=== PATIENT | female | born 1945 | race Caucasian/White ===

== ENCOUNTER 2020-04-28 18:42 | Emergency (ER) | payer MEDICARE, MEDICAID ==
--- NOTE | 2020-04-28 20:20 | RAD ---
LEFT HIP TWO VIEWS: History: Injury. Fall with pain in hip. FINDINGS: There is cortical disruption on the inferior aspect of the femoral neck in the subcapital region cons istent with fracture. No displacement. Visualized pelvis appears intact. IMPRESSION: Evidence of subcapital fracture inferior aspect of the femoral neck. POS: AGW
[2020-04-28 21:08] LABS: #Eosinphils 0.2 thou/uL (0.0-0.7); #Lymphocytes 1.5 thou/uL (1.20-3.40); #Monocytes 0.6 thou/uL (0.11-0.59); #Neutrophils 6.7 thou/uL (1.40-6.50); %Basophils 0.5 % (0.0-1.0); %Eosinophils 1.8 % (0.0-10.0); %Lymphocytes 16.5 % (21.0-51.0); %Monocytes 6.4 % (0.0-10.0); %Neutrophils 74.8 % (42.0-75.0); Mean Corpuscular HGB CONC 32.3 g/dL (32.0-36.0); Mean Corpuscular Hemoglobin 28.5 pg (27.0-31.0); Mean Platelet Volume 7.5 fL (7.4-10.4); Platelet Count 178 thou/uL (130-400); RBC Distribution Width 11.8 % (11.5-14.5); Red Blood Cell (RBC) Count 4.56 mill/uL (4.20-5.40)
[2020-04-28 21:36] LABS: ALT (SGPT) 10 U/L (8-55); AST (SGOT) 13 U/L (5-34); Albumin 4.2 g/dL (3.4-4.8); Alkaline Phosphatase 76 U/L (40-110); Anion Gap 14 mmol/L (10-20); BUN (Urea Nitrogen) 20 mg/dL (9.8-20.1); Bilirubin, Total 0.8 mg/dL (0.2-1.2); Calc. Creatinine Clearance 0 mL/min (70-130); Calcium 10.2 mg/dL (7.8-10.44); Carbon Dioxide 25 mmol/L (23-31); Chloride 104 mmol/L (98-107); Estimated GFR-MDRD 69; Glucose 138 mg/dL (83-110); Protein, Total 7.2 g/dL (6.0-8.3); Sodium 139 mmol/L (136-145)
--- NOTE | 2020-04-28 21:43 | RAD ---
AP CHEST: History: Pre op evaluation. FINDINGS: Lung eason are clear. Vasculature normal. Heart and mediastinum unremarkable. Small calcified granuloma in the peripheral right lung. IMPRESSION: No acute findings. POS: AGW
== END 2020-04-28 21:29 | disposition short-term general hospital (02) ==
LOC: NAV ERS 18:42
DX: S72.012A Unspecified intracapsular fracture of left femur, initial encounter for closed fracture (principal); I10 Essential (primary) hypertension; G30.9 Alzheimer's disease, unspecified; F02.80 Dementia in other diseases classified elsewhere, unspecified severity, without behavioral disturbance, psychotic disturbance, mood disturbance, and anxiety; I25.9 Chronic ischemic heart disease, unspecified; E55.9 Vitamin D deficiency, unspecified; F41.9 Anxiety disorder, unspecified; F32.9 Major depressive disorder, single episode, unspecified; Z79.899 Other long term (current) drug therapy; Z86.73 Personal history of transient ischemic attack (TIA), and cerebral infarction without residual deficits; Z79.82 Long term (current) use of aspirin; Z79.84 Long term (current) use of oral hypoglycemic drugs; W19.XXXA Unspecified fall, initial encounter
CPT/HCPCS: 71045; 80053; 85025; 93005

== ENCOUNTER 2020-05-27 18:50 | Inpatient (IN) | payer MEDICARE, MEDICAID ==
[2020-05-27 19:53] LABS: #Lymphocytes 0.8 thou/uL (1.20-3.40); #Monocytes 0.8 thou/uL (0.11-0.59); #Neutrophils 12.9 thou/uL (1.40-6.50); %Basophils 0.3 % (0.0-1.0); %Eosinophils 0.1 % (0.0-10.0); %Lymphocytes 5.2 % (21.0-51.0); %Monocytes 5.3 % (0.0-10.0); Hemoglobin 12.9 g/dL (12.0-16.0); Mean Corpuscular HGB CONC 32.8 g/dL (32.0-36.0); Mean Corpuscular Hemoglobin 28.7 pg (27.0-31.0); Mean Corpuscular Volume 87.4 fL (78.0-98.0); Mean Platelet Volume 7.5 fL (7.4-10.4); Platelet Count 200 thou/uL (130-400); RBC Distribution Width 12.6 % (11.5-14.5); Red Blood Cell (RBC) Count 4.49 mill/uL (4.20-5.40); White Blood Cell (WBC) Count 14.5 thou/uL (4.8-10.8)
--- NOTE | 2020-05-27 19:59 | RAD ---
Portable frontal chest radiograph: 05/27/2020 COMPARISON: 04/28/2020 HISTORY: Urosepsis, fever FINDINGS: Heart and mediastinal contours are stable. No pneumothorax or pleural fluid. No focal conso lidation or alveolar edema. IMPRESSION: No acute findings.
[2020-05-27 20:02] LABS: ALT (SGPT) 10 U/L (8-55); AST (SGOT) 9 U/L (5-34); Albumin 3.7 g/dL (3.4-4.8); Alkaline Phosphatase 92 U/L (40-110); Anion Gap 18 mmol/L (10-20); BUN (Urea Nitrogen) 39 mg/dL (9.8-20.1); Bilirubin, Total 0.7 mg/dL (0.2-1.2); CK (CPK) 16 U/L (29-168); Calc. Creatinine Clearance 0 mL/min (70-130); Calcium 10.1 mg/dL (7.8-10.44); Carbon Dioxide 20 mmol/L (23-31); Chloride 109 mmol/L (98-107); Estimated GFR-MDRD 36; Globulin 3.4 g/dL (2.4-3.5); Glucose 328 mg/dL (83-110); Protein, Total 7.1 g/dL (6.0-8.3); Sodium 143 mmol/L (136-145)
[2020-05-27] MEDS ORDERED: Cefepime 2 GM VIAL ONE (20:02)
[2020-05-27] MEDS ORDERED: Sodium Chloride 0.9% 100 ML ONE (20:02)
[2020-05-27] MEDS ORDERED: Sodium Chloride 0.9% 1,000 ML ONE (20:02)
[2020-05-27 20:11] LABS: Lipase Less than 4 U/L (8-78)
--- NOTE | 2020-05-27 20:23 | CT ---
CT of the abdomen and pelvis: 05/27/2020 COMPARISON: None HISTORY: Possible urosepsis, abdominal distention TECHNIQUE: Axial CT imaging at 5 mm intervals from the lung bases through the pubic symphysis without contrast. Coronal and sagittal reformatted imaging obtained. FINDINGS: Coronary arterial calcification noted. Calcified hilar lymph nodes are noted on the right. There is mild pleural-based density in the right lung base suggesting volume loss or scar. Evaluation of the viscera, bowel, vascular structures, and for lymphadenopathy is limited on noncontr ast enhanced imaging. Cholecystectomy clips are present. The liver, spleen, and pancreas appear grossly unremarkable. Bilateral adrenal glands are thickened w ith possible underlying low-density nodules, not well assessed on this examination secondary to motion. There is a moderate degree of hydronephrosis and hydroureter bilaterally. This is likely secondary to urinary bladder distention as there is massive dilation of the urinary bladder which measures 20.5 cm in craniocaudal dimension, 14.6 cm in AP dimension and 17.7 cm in transverse dimension. There is significant stool seen throughout the colon. No evidence for bowel obstruction. Evaluation o f the bowel is limited secondary to the distended urinary bladder and the lack of contrast media. There is scattered atherosclerotic calcification of the abdominal aorta and its branches. No acute osseous abnormality is seen. Multilevel lower lumbar spine facet hypertrophic change present . IMPRESSION: Massively distended urinary bladder with bilateral hydronephrosis and hydroureter, likely all secondary to bladder outlet obstruction. Follow-up renal ultrasound following decompression of the urinary bladder advised to document resolution of the hydronephrosis.
[2020-05-27 20:30] LABS: CKMB 2.3 ng/mL (0-6.6)
[2020-05-27 20:53] LABS: Bilirubin Negative (Negative); Blood, Urine Trace (Negative); Clarity Clear (Clear); Glucose, Urine (Dipstick) 500 mg/dL (Negative); Ketone, Urine Negative (Negative); Leukocyte Negative (Negative); Nitrite Negative (Negative); Protein, Urine (Dipstick) 30 mg/dL (Neg-Trace); Specific Gravity, Urine 1.025 (1.005-1.030); Urobilinogen 0.2 mg/dL (Less than 2); pH, Urine 5.5 (5.0-9.0)
[2020-05-27 21:00] LABS: RBC/HPF 0-3 HPF (0-3)
[2020-05-27] MEDS ORDERED: Sodium Chloride 0.9% 500 ML ONE (21:59)
[2020-05-27 22:44] LABS: Lactic Acid 3.7 mmol/L (0.5-2.2)
[2020-05-27 22:56] VITALS: BMI 21.8
[2020-05-27] MEDS ORDERED: Sodium Chloride 0.9% 1,000 ML IV SCH (23:45)
[2020-05-27] MEDS ORDERED: Dextrose 5% in Water 1,000 ML IV PRN (23:45)
[2020-05-27] MEDS ORDERED: HumaLOG 300 UNITS/3 ML VIAL SC PRN (23:45)
[2020-05-27] MEDS ORDERED: Dextrose 50% Abboject 50 ML SYRINGE SLOW IVP PRN (23:48)
[2020-05-27] MEDS ORDERED: hydrALAZINE 20 MG/ML VIAL SLOW IVP SCH (23:59)
[2020-05-28] MEDS ORDERED: hydrALAZINE 20 MG/ML VIAL SLOW IVP SCH ×3 (01:00→07:15)
[2020-05-28 05:48] LABS: Lactic Acid 2.2 mmol/L (0.5-2.2)
[2020-05-28] MEDS ORDERED: [UNRECOGNIZED DRUG - OTHER] PO SCH (09:00)
[2020-05-28] MEDS ORDERED: SENNOSIDES PO SCH (09:00)
[2020-05-28] MEDS ORDERED: Non-Formulary Item 1 EACH (Metformin Hcl [Metformin Hcl] 1,000 MG Tablet) PO SCH (09:00)
[2020-05-28] MEDS ORDERED: Non-Formulary Item 1 EACH (Amlodipine Besylate [Amlodipine Besylate] 2.5 MG Tablet) PO SCH (09:00)
[2020-05-28] MEDS ORDERED: Sodium Chloride 0.9% 1,000 ML IV SCH (09:00)
[2020-05-28] MEDS ORDERED: DOCUSATE SODIUM PO SCH (09:00)
[2020-05-28 09:19] LABS: #Basophils 0.1 thou/uL (0.0-0.2); #Eosinphils 0.3 thou/uL (0.0-0.7); #Lymphocytes 1.6 thou/uL (1.20-3.40); #Monocytes 0.6 thou/uL (0.11-0.59); #Neutrophils 6.6 thou/uL (1.40-6.50); %Basophils 0.6 % (0.0-1.0); %Lymphocytes 17.9 % (21.0-51.0); %Neutrophils 72.5 % (42.0-75.0); Hemoglobin 11.6 g/dL (12.0-16.0); Mean Corpuscular HGB CONC 32.7 g/dL (32.0-36.0); Mean Corpuscular Hemoglobin 29.1 pg (27.0-31.0); Mean Platelet Volume 7.6 fL (7.4-10.4); Platelet Count 170 thou/uL (130-400); Red Blood Cell (RBC) Count 3.98 mill/uL (4.20-5.40); White Blood Cell (WBC) Count 9.1 thou/uL (4.8-10.8)
[2020-05-28] MEDS: Amlodipine 5 MG TAB PO SCH ×2 (09:24→11:18)
[2020-05-28 09:25] LABS: Lactic Acid 2.2 mmol/L (0.5-2.2)
[2020-05-28] MEDS: Aspirin 81 mg Enteric Coated Tablet PO SCH ×2 (09:25→11:19)
[2020-05-28] MEDS: busPIRone HCl 5 MG TAB PO SCH ×4 (09:26→21:10)
[2020-05-28] MEDS: Lisinopril 20 MG TAB PO SCH ×2 (09:26→11:20)
[2020-05-28] MEDS: metFORMIN 500 MG TAB PO SCH ×3 (09:27→21:10)
[2020-05-28] MEDS: Senokot S 8.6-50 MG TAB PO SCH ×2 (09:28→11:21)
[2020-05-28 09:30] LABS: ALT (SGPT) 9 U/L (8-55); AST (SGOT) 9 U/L (5-34); Albumin 3.3 g/dL (3.4-4.8); Alkaline Phosphatase 83 U/L (40-110); Anion Gap 14 mmol/L (10-20); BUN (Urea Nitrogen) 31 mg/dL (9.8-20.1); Bilirubin, Total 0.7 mg/dL (0.2-1.2); Calc. Creatinine Clearance 53 mL/min (70-130); Calcium 9.4 mg/dL (7.8-10.44); Carbon Dioxide 22 mmol/L (23-31); Chloride 112 mmol/L (98-107); Estimated GFR-MDRD 62; Glucose 181 mg/dL (83-110); Potassium 3.3 mmol/L (3.5-5.1); Protein, Total 6.3 g/dL (6.0-8.3); Sodium 145 mmol/L (136-145)
[2020-05-28 10:16] LABS: Troponin I 0.506 ng/mL (< 0.028)
[2020-05-28] MEDS: Sodium Chloride 0.9% 1,000 ML IV SCH (11:22)
[2020-05-28] MEDS ORDERED: Amlodipine 5 MG TAB PO SCH (13:00)
[2020-05-28] MEDS: Meropenem 1 GM in Sodium Chloride 0.9% 100 ML IVPB SCH ×2 (13:59→21:11)
[2020-05-28] MEDS ORDERED: Acetaminophen 325 MG TAB PO PRN (14:21)
[2020-05-28 14:40] LABS: SARS-CoV-2 MS2 Positive; SARS-CoV-2 N Gene Negative; SARS-CoV-2 S Gene Negative; SARS-CoV-2 by NAA Not Detected (NotDetected); SARS-CoV-2 orf1ab Negative
[2020-05-28] MEDS ORDERED: Acetaminophen 325 MG TAB PO SCH (18:00)
[2020-05-28] MEDS: Donepezil HCl 10 MG TAB PO SCH (21:10)
[2020-05-28] MEDS: Mirtazapine 15 MG TAB PO SCH (21:10)
--- NOTE | 2020-05-29 02:34 | HP ---
HISTORY OF PRESENT ILLNESS: This 74-year-old female transferred here from skilled nursing for weakness and altered mental status. Of note, the patient is baseline aphasic after a CVA that she suffered in the past. Therefore, history could not be obtained from the patient. History was obtained through ED report and reviewing previous records. The patient has past medical history of dementia, cerebrovascular accident, Alzheimer's, hypertension, type 2 diabetes, vitamin D deficiency, anxiety and depression. I am unable to obtain past surgical history. The patient was brought to the ED while in the skilled nursing for weakness and altered mental status. In the ED, chest x-ray was taken, which was unremarkable. Abdominal CT showed bilateral hydronephrosis and hydroureter with significant urinary bladder distention and dilation of the urinary bladder, which measured 20.5 cm in craniocaudal dimension, 14.6 cm in AP dimension, 17.7 cm in transverse dimension. The patient was also found to be septic with a white count of 14.5 and a lactate of 3.7, carbon dioxide was low at 20, sodium and potassium of 143 and 4.0, BUN 39, creatinine 1.44, glucose of 328. The patient had troponin of 0.675, however, she is DNR. Urine positive for protein 30, glucose 500, trace blood. COVID-19 test was negative. The patient was admitted for sepsis secondary to presumed urosepsis given hydronephrosis and condition. PAST MEDICAL HISTORY: 1. Dementia. 2. CVA. 3. Alzheimer's. 4. Hypertension. 5. Type 2 diabetes. 6. Vitamin D deficiency. 7. Anxiety. 8. Depression. PAST SURGICAL HISTORY: I am unable to obtain. ALLERGIES: NO KNOWN DRUG ALLERGIES. HOME MEDICATIONS: Per documents sent; 1. Donepezil 10 at bedtime. 2. Docusate. 3. Lisinopril 20 daily. 4. Vitamin D3. 5. Metformin 1000 b.i.d. 6. BuSpar 5 mg p.o. t.i.d. 7. Aspirin 81 mg. 8. Amlodipine 2.5 mg p.o. daily. 9. Mirtazapine 15 mg p.o. at bedtime. 10. Loperamide 2 mg p.o. q.6 hours p.r.n. 11. Acetaminophen 1000 p.o. q.8. PHYSICAL EXAMINATION: VITAL SIGNS: On admission, temperature 96, pulse 88 to 93, blood pressure ranging 129/86 to 161/100, respiratory rate of 20, and O2 sats 94% on room air. GENERAL: Frail, well-appearing 74-year-old female, in no apparent distress. Aphasic. HEENT: Normocephalic, atraumatic. No thyromegaly. RESPIRATORY: Clear to auscultation bilaterally. No wheezes or rhonchi. CARDIOVASCULAR: Regular rate and rhythm. No murmurs, gallops, or rubs. ABDOMEN: Soft, nontender to palpation. Bowel sounds present in all four quadrants. EXTREMITIES: No edema. No rashes seen. NEUROLOGIC: Aphasic. ASSESSMENT: 1. Presumed urosepsis, on meropenem. 2. Dementia. 3. Aphasia. 4. Cerebrovascular accident. 5. Diabetes mellitus type 2. 6. Hypertension. PLAN: 1. Start the patient on meropenem coverage for presumed urosepsis. 2. Continue normal saline at 75 mL/h. 3. The patient is aphasic. However, per nursing notes, she was eating a soft diet at the skilled nursing. We will get a speech eval today to determine diet. 4. Monitor respiratory status. 5. Routine lab work, monitor white cells. 6. The patient had elevated troponin of 0.8. We will repeat troponin and follow up trend. The patient did have a repeat troponin, which was 0.5 today, which is downtrending. 7. DVT and GI prophylaxis. Job ID: [id number]
[2020-05-29] MEDS: Sodium Chloride 0.9% 1,000 ML IV SCH ×3 (03:41→20:20)
[2020-05-29] MEDS: Meropenem 1 GM in Sodium Chloride 0.9% 100 ML IVPB SCH ×3 (06:29→21:19)
[2020-05-29] MEDS: Amlodipine 5 MG TAB PO SCH (08:19)
[2020-05-29] MEDS: Aspirin 81 mg Enteric Coated Tablet PO SCH (08:19)
[2020-05-29] MEDS: metFORMIN 500 MG TAB PO SCH ×2 (08:20→20:22)
[2020-05-29] MEDS: Lisinopril 20 MG TAB PO SCH (08:20)
[2020-05-29] MEDS: busPIRone HCl 5 MG TAB PO SCH ×3 (08:20→20:22)
[2020-05-29] MEDS: Senokot S 8.6-50 MG TAB PO SCH (08:20)
--- NOTE | 2020-05-29 16:05 | PRG ---
DATE OF SERVICE: 05/29/2020 SUBJECTIVE: Ms. Brewster is resting comfortably and denies any complaints. No fever or chills. Tolerating her antibiotics. Blood culture shows coag-negative staph. OBJECTIVE: VITAL SIGNS: She is afebrile, heart rate 87, respirations 18, oxygen saturation 98% on room air, and blood pressure 149/73. CARDIOVASCULAR SYSTEM: S1 and S2 plus. RESPIRATORY SYSTEM: Normal vesicular breath sounds. ABDOMEN: Soft and nontender. Bowel sounds heard in all quadrants. EXTREMITIES: Without cyanosis or clubbing. CENTRAL NERVOUS SYSTEM: Generalized weakness. IMPRESSION: 1. Possible urosepsis, but her urinalysis was unremarkable. 2. Hydronephrosis with hydroureter, likely secondary to bladder neck obstruction. She has an indwelling Castle. We will redo an ultrasound probably Tuesday to document resolution of hydronephrosis. 3. Hypertension. 4. Dementia. 5. Diabetes mellitus, type 2. PLAN: 1. Continue current medications including antibiotics. 2. Await final cultures and sensitivities. 3. Accu-Cheks with sliding scale coverage. 4. Nutritional support. 5. Monitor blood pressure and adjust medications. 6. Routine laboratory values. 7. No family at bedside. Job ID: [id number]
[2020-05-29] MEDS: Mirtazapine 15 MG TAB PO SCH (20:22)
[2020-05-29] MEDS: Donepezil HCl 10 MG TAB PO SCH (20:22)
[2020-05-30 05:41] LABS: #Basophils 0.1 thou/uL (0.0-0.2); #Eosinphils 0.6 thou/uL (0.0-0.7); #Lymphocytes 2.2 thou/uL (1.20-3.40); #Monocytes 0.6 thou/uL (0.11-0.59); #Neutrophils 3.5 thou/uL (1.40-6.50); %Basophils 0.9 % (0.0-1.0); %Eosinophils 8.9 % (0.0-10.0); %Lymphocytes 31.4 % (21.0-51.0); %Monocytes 8.4 % (0.0-10.0); %Neutrophils 50.5 % (42.0-75.0); Hemoglobin 10.3 g/dL (12.0-16.0); Mean Corpuscular HGB CONC 31.4 g/dL (32.0-36.0); Mean Corpuscular Hemoglobin 29.1 pg (27.0-31.0); Mean Corpuscular Volume 92.8 fL (78.0-98.0); Mean Platelet Volume 7.7 fL (7.4-10.4); Platelet Count 156 thou/uL (130-400); RBC Distribution Width 13.2 % (11.5-14.5); Red Blood Cell (RBC) Count 3.55 mill/uL (4.20-5.40); White Blood Cell (WBC) Count 6.9 thou/uL (4.8-10.8)
[2020-05-30] MEDS: Meropenem 1 GM in Sodium Chloride 0.9% 100 ML IVPB SCH ×2 (05:51→15:46)
[2020-05-30 06:20] LABS: Anion Gap 12 mmol/L (10-20); BUN (Urea Nitrogen) 20 mg/dL (9.8-20.1); Calc. Creatinine Clearance 78 mL/min (70-130); Calcium 8.6 mg/dL (7.8-10.44); Carbon Dioxide 24 mmol/L (23-31); Chloride 109 mmol/L (98-107); Estimated GFR-MDRD Greater than 90; Glucose 96 mg/dL (83-110); Potassium 3.7 mmol/L (3.5-5.1); Sodium 141 mmol/L (136-145)
[2020-05-30] MEDS: Amlodipine 5 MG TAB PO SCH (08:57)
[2020-05-30] MEDS: metFORMIN 500 MG TAB PO SCH ×2 (08:57→20:26)
[2020-05-30] MEDS: Aspirin 81 mg Enteric Coated Tablet PO SCH (08:57)
[2020-05-30] MEDS: Lisinopril 20 MG TAB PO SCH (08:58)
[2020-05-30] MEDS: Senokot S 8.6-50 MG TAB PO SCH (08:58)
[2020-05-30] MEDS: busPIRone HCl 5 MG TAB PO SCH ×3 (08:58→20:27)
[2020-05-30] MEDS: Sodium Chloride 0.9% 1,000 ML IV SCH ×2 (11:54→15:46)
--- NOTE | 2020-05-30 15:34 | PRG ---
DATE OF SERVICE: 05/30/2020 SUBJECTIVE: Ms. Brewster is doing the same. Discussed with Nursing. OBJECTIVE: VITAL SIGNS: She is afebrile, heart rate 69, respirations 22, oxygen saturation 100% on room air, blood pressure 170/82. CARDIOVASCULAR: S1-S2 plus. RESPIRATORY: Normal vesicular breath sounds. ABDOMEN: Soft and nontender. Bowel sounds heard in all quadrants. EXTREMITIES: Without cyanosis or clubbing. CENTRAL NERVOUS SYSTEM: Cognitive deficits, otherwise generalized weakness. IMPRESSION: 1. Bladder neck obstruction, resolved with Castle catheter. 2. No evidence for sepsis. Blood cultures showing coag-negative Staph 1/2, likely contaminant and urine culture is negative. No fever. White count back to normal. 3. Hypertension. 4. Dementia. 5. Diabetes mellitus type 2. PLAN: 1. Continue current medications, but discontinue meropenem. 2. Check CBC in the morning and if white count is normal, [facility]. 3. Outpatient renal ultrasound to document resolution of hydronephrosis. 4. Nutritional support. 5. Increase amlodipine to 10 mg daily and change time to bedtime. 6. Anticipate discharge her back to jail tomorrow. Job ID: [id number]
[2020-05-30] MEDS: Donepezil HCl 10 MG TAB PO SCH (20:26)
[2020-05-30] MEDS: Mirtazapine 15 MG TAB PO SCH (20:26)
[2020-05-30] MEDS ORDERED: Amlodipine 5 MG TAB PO SCH (21:00)
[2020-05-31 06:00] LABS: #Basophils 0.1 thou/uL (0.0-0.2); #Eosinphils 0.5 thou/uL (0.0-0.7); #Lymphocytes 1.6 thou/uL (1.20-3.40); #Monocytes 0.5 thou/uL (0.11-0.59); #Neutrophils 3.4 thou/uL (1.40-6.50); %Basophils 0.9 % (0.0-1.0); %Eosinophils 7.9 % (0.0-10.0); %Monocytes 7.6 % (0.0-10.0); %Neutrophils 56.6 % (42.0-75.0); Hemoglobin 10.6 g/dL (12.0-16.0); Mean Corpuscular Hemoglobin 28.8 pg (27.0-31.0); Mean Corpuscular Volume 87.3 fL (78.0-98.0); Mean Platelet Volume 7.8 fL (7.4-10.4); Platelet Count 168 thou/uL (130-400); Red Blood Cell (RBC) Count 3.66 mill/uL (4.20-5.40)
[2020-05-31 06:13] LABS: Anion Gap 11 mmol/L (10-20); BUN (Urea Nitrogen) 16 mg/dL (9.8-20.1); Calc. Creatinine Clearance 80 mL/min (70-130); Calcium 8.6 mg/dL (7.8-10.44); Carbon Dioxide 25 mmol/L (23-31); Chloride 107 mmol/L (98-107); Estimated GFR-MDRD Greater than 90; Glucose 95 mg/dL (83-110); Potassium 3.8 mmol/L (3.5-5.1); Sodium 139 mmol/L (136-145)
[2020-05-31] MEDS: Lisinopril 20 MG TAB PO SCH (09:09)
[2020-05-31] MEDS: Aspirin 81 mg Enteric Coated Tablet PO SCH (09:09)
[2020-05-31] MEDS: metFORMIN 500 MG TAB PO SCH (09:09)
[2020-05-31] MEDS: Senokot S 8.6-50 MG TAB PO SCH (09:10)
[2020-05-31] MEDS: busPIRone HCl 5 MG TAB PO SCH (09:10)
[2020-05-31 09:17] VITALS: BP 182/92; TEMP 98.7
--- NOTE | 2020-05-31 19:29 | DIS ---
DATE OF ADMISSION: 05/27/2020 DATE OF DISCHARGE: 05/31/2020 PRINCIPAL DIAGNOSES: 1. Bilateral hydronephrosis and hydroureter likely secondary to bladder neck obstruction. 2. Hypertension. 3. Diabetes mellitus type 2. 4. Dementia. 5. Deconditioning. 6. History of CVA. 7. Anxiety and depression. COMPLICATIONS: None. ADVERSE REACTIONS: None. PROCEDURES: None. CONSULTATIONS: None. HOSPITAL COURSE: [facility] with weakness and altered mental status. Her CT abdomen showed bilateral hydronephrosis and hydroureter with significant urinary bladder distention. This was felt to be due to bladder neck obstruction. Castle catheter was placed. She also was treated for presumed urosepsis with IV antibiotics. Her urine culture was negative and urinalysis was actually unremarkable. White count went down to normal. She remained afebrile and so her antibiotics were discontinued. Repeat CBC done on the day of transfer back to the [facility] showed a white count of 6 with an H and H of 10.6 and 32. Sodium 139, potassium 3.8, BUN and creatinine 16 and 0.6. She was deemed stable for discharge without any antibiotics. [facility] been given to the [facility] to do a renal and bladder ultrasound to document complete resolution of the hydronephrosis. She will be followed by Dr. Rodriguez [facility] in the [facility]. DISCHARGE PHYSICAL EXAMINATION: VITAL SIGNS: On the day of discharge, she is afebrile, heart rate 75, respirations 18, oxygen saturation 98% on room air, blood pressure 144/89. CARDIOVASCULAR SYSTEM: S1-S2 plus. RESPIRATORY SYSTEM: Normal vesicular breath sounds. ABDOMEN: Soft, nontender. Bowel sounds in all quadrants. EXTREMITIES: Without cyanosis, clubbing. CENTRAL NERVOUS SYSTEM: Generalized weakness. DISCHARGE MEDICATIONS: 1. Tylenol 1000 mg q.8 hours p.r.n. 2. Amlodipine 2.5 mg daily. 3. Aspirin 81 mg daily. 4. BuSpar 5 mg b.i.d. 5. Vitamin D3 at 5000 units daily. 6. Aricept 10 mg daily. 7. Ibuprofen 400 mg t.i.d. p.r.n. 8. Lisinopril 20 mg daily. 9. Loperamide 2 mg q.6 p.r.n. 10. Metformin 1000 mg b.i.d. 11. Mirtazapine 15 mg at bedtime. 12. Senna Plus one tablet daily. 13. Tramadol 50 mg q.6 p.r.n. For full details, please see chart. TIME SPENT: Total time spent on this discharge 25 minutes. Job ID: [id number]
== END 2020-05-31 13:00 | DRG 699 ==
LOC: NAV ERS 18:50 → NAV ACUTE 22:50
PROVIDERS: ADMIT Family Medicine; ATTEND Family Medicine
DX: N32.0 Bladder-neck obstruction (principal); N13.30 Unspecified hydronephrosis; G30.9 Alzheimer's disease, unspecified; F02.80 Dementia in other diseases classified elsewhere, unspecified severity, without behavioral disturbance, psychotic disturbance, mood disturbance, and anxiety; I10 Essential (primary) hypertension; E11.9 Type 2 diabetes mellitus without complications; Z20.828 Contact with and (suspected) exposure to other viral communicable diseases; F41.9 Anxiety disorder, unspecified; F32.9 Major depressive disorder, single episode, unspecified; R53.81 Other malaise; I69.320 Aphasia following cerebral infarction; Z79.84 Long term (current) use of oral hypoglycemic drugs
CPT/HCPCS: 36415; 36416; 51702; 71045; 74176; 80048; 80053; 81003; 81015; 82550; 82553; 83605; 83690; 84484; 85025; 87040; 87086; 87149; 87635; 87804; 93005; 96365; J0360; J0692; J2185; J3490; J7030; J7050; U0003